=== PATIENT | female | born 1935 | race Caucasian/White ===

== ENCOUNTER 2019-06-14 15:27 | Emergency (ER) | payer OTHER ==
[~2019-06-14] VITALS: Ht 165.1 cm; Wt 68.0 kg
[~2019-06-14 15:27] MED LIST: ASPI-858 PO; HYDR-3924 PO; PLE5 PO; PRO40 PO; SENN-153 PO; SIMV40TA2 PO
--- NOTE | 2019-06-14 15:30 | NUR ---
ABY Nguyen at bedside examining patient.
--- NOTE | 2019-06-14 15:38 | NUR ---
Patient to ER bed 6 to gown for evaluation. Side rails up. Report given to Brian ADDISON.
[2019-06-14 15:39] VITALS: BP_SYST 139
[2019-06-14] MEDS ORDERED: MORPHINE 4 MG/ML INJ. SYRINGE IVP ONE ×2 (15:45→16:30)
--- NOTE | 2019-06-14 15:45 | NUR ---
Patient came in by BLS for hip pain. Patient states that she stubbed her right toe into a door and when she reacted she bent her leg up and felt a sudden pain in her right hip. 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 Patient says she has pain 09/08. Patient denies N/V/D. Patient denies SOB. Pt is A&Ox4. Will continue to monitor.
[2019-06-14 16:08] LABS: BASOPHILS % (AUTO) 0.7 % (0.0-2.0); EOSINOPHILS % (AUTO) 0.8 % (0.0-4.0); HEMATOCRIT 42.6 % (36-48); HEMOGLOBIN 13.9 g/dL (12.0-16.0); MEAN CORPUSCULAR HEMOGLOBIN 30 pg (27-31); MEAN CORPUSCULAR HGB CONC 33 % (32-36); MEAN CORPUSCULAR VOLUME 92 fL (79.0-98.0); MONOCYTES # (AUTO) 0.5 K/uL (0.0-1.0); MONOCYTES % (AUTO) 8.6 % (1.7-9.3); NEUTROPHILS % (AUTO) 71.9 % (40.0-70.0); PLATELET COUNT (AUTO) 106 K/uL (130-430); RED BLOOD CELL COUNT(AUTO) 4.63 MIL/uL (4.2-6.2); RED CELL DISTRIBUTION WIDTH 13.9 % (9.0-15.0); WHITE BLOOD COUNT (AUTO) 5.5 K/uL (4.8-10.8)
[2019-06-14 16:20] LABS: ANION GAP 8 (5-15); CALCIUM 9.2 mg/dL (8.4-11.0); CHLORIDE 106 mmol/L (98-107); CREATININE 0.77 mg/dL (0.55-1.30); GLUCOSE 118 mg/dL (70-99); POTASSIUM 3.5 mmol/L (3.5-5.1); SODIUM SERUM 140 mmol/L (136-145); UREA NITROGEN, BLOOD 10 mg/dL (8-21)
[2019-06-14 16:25] LABS: ALANINE AMINOTRANSFERASE 18 U/L (12-78); ALBUMIN 3.7 g/dL (3.4-4.8); ASPARTATE AMINOTRANSFERASE 20 U/L (10-37); TOTAL BILIRUBIN 0.7 mg/dL (0.0-1.0)
[2019-06-14] MEDS ORDERED: PROPOFOL 200MG/ 20ML VIAL (DIPRIVAN) IV ONE (16:45)
[2019-06-14] MEDS ORDERED: NACL 0.9% 1,000 ML IV ONE (16:45)
[2019-06-14] MEDS ORDERED: ONDANSETRON HCL 4 MG/2 ML VIAL IVP ONE (16:45)
--- NOTE | 2019-06-14 16:50 | NUR ---
Consent signed for conscious sedation.
[2019-06-14] MEDS ORDERED: fentaNYL CITRATE/PF 100 MCG/2 ML AMP IVP ONE (17:45)
--- NOTE | 2019-06-14 19:15 | NUR ---
ER Dr. Nguyen at bedside explaining results to patient/family.
--- NOTE | 2019-06-14 19:30 | NUR ---
Assisted patient for a road test with EMT. Pt was able to ambulate with minor assistance. Pt states "I feel better." Pt assisted back to bed. Dr. Nguyen notified of successful road test.
[2019-06-14 19:50] VITALS: BP_SYST 138
--- NOTE | 2019-06-14 19:50 | NUR ---
Patient given written and verbal discharge instructions and verbalizes understanding. ER MD discussed with patient the results and treatment provided. Patient in stable condition. ID arm band removed. IV catheter removed intact and dressing applied, no active bleeding. Rx of Tylenol with Codeine given. Patient educated on pain management and to follow up with PMD. Pain Scale 0. Opportunity for questions provided and answered. Medication side effect fact sheet provided.
== END 2019-06-14 19:50 | disposition home or self-care (01) ==
LOC: SED 15:27
DX: S73.004A Unspecified dislocation of right hip, initial encounter (principal); I10 Essential (primary) hypertension; Z86.79 Personal history of other diseases of the circulatory system; Z96.651 Presence of right artificial knee joint; Z96.641 Presence of right artificial hip joint; Z88.0 Allergy status to penicillin; Z88.1 Allergy status to other antibiotic agents; Z79.82 Long term (current) use of aspirin; Z79.899 Other long term (current) drug therapy; W18.39XA Other fall on same level, initial encounter; Y93.89 Activity, other specified; Y92.89 Other specified places as the place of occurrence of the external cause; Y99.8 Other external cause status
CPT/HCPCS: 27250; 36415; 72170; 73502; 80053; 82550; 85025; 96374; 96375; 99152; 99285; J2270; J2405; J2704; J3010; J7030

== ENCOUNTER 2022-06-16 16:30 | Emergency (ER) | payer OTHER, MEDICAID ==
[~2022-06-16] VITALS: Ht 165.1 cm; Wt 57.2 kg
[~2022-06-16 16:30] MED LIST changes: +CIPR500T5 PO; -HYDR-3924 PO; +HYDR-4497 PO; +METR500T PO
[2022-06-16 16:41] VITALS: BP_SYST 134
[2022-06-16] MEDS ORDERED: MORPHINE 4 MG INJ. 4 MG/ML VIAL IVP ONE ×2 (17:30→19:00)
--- NOTE | 2022-06-16 17:36 | NUR ---
PLACED IN BED 2 AT THIS TIME, ERMD AT BEDSIDE
[2022-06-16 18:13] LABS: BASOPHILS % (AUTO) 0.6 % (0.0-2.0); EOSINOPHILS # (AUTO) 0.1 K/uL (0.0-0.4); EOSINOPHILS % (AUTO) 1.3 % (0.0-4.0); HEMATOCRIT 39.8 % (36-48); HEMOGLOBIN 13.1 g/dL (12.0-16.0); LYMPHOCYTES # (AUTO) 1.3 K/uL (1.0-5.5); MEAN CORPUSCULAR HEMOGLOBIN 30 pg (27-31); MEAN CORPUSCULAR HGB CONC 33 % (32-36); MEAN CORPUSCULAR VOLUME 92 fL (79.0-98.0); MONOCYTES # (AUTO) 0.7 K/uL (0.0-1.0); NEUTROPHILS # (AUTO) 5.7 K/uL (1.8-7.7); NEUTROPHILS % (AUTO) 73.1 % (40.0-70.0); RED BLOOD CELL COUNT(AUTO) 4.32 MIL/uL (4.2-6.2); RED CELL DISTRIBUTION WIDTH 13.4 % (9.0-15.0); WHITE BLOOD COUNT (AUTO) 7.8 K/uL (4.8-10.8)
[2022-06-16 18:21] LABS: ANION GAP 6 (5-15); CALCIUM 9.4 mg/dL (8.4-11.0); CHLORIDE 103 mmol/L (98-107); CREATININE 0.83 mg/dL (0.55-1.30); GLUCOSE 127 mg/dL (70-99); INR 0.9 (0.8-1.2); PROTHROMBIN TIME 9.3 SECS (9.5-12.5); SODIUM SERUM 136 mmol/L (136-145); UREA NITROGEN, BLOOD 20 mg/dL (8-21)
[2022-06-16 18:27] LABS: ALANINE AMINOTRANSFERASE 11 U/L (12-78); ALBUMIN 3.9 g/dL (3.4-4.8); ASPARTATE AMINOTRANSFERASE 23 U/L (10-37); TOTAL BILIRUBIN 0.7 mg/dL (0.0-1.0)
[2022-06-16 18:31] LABS: PLATELET COUNT (AUTO) 120 K/uL (130-430)
[2022-06-16] MEDS ORDERED: ONDANSETRON HCL 4 MG/2 ML VIAL IVP ONE (19:00)
--- NOTE | 2022-06-16 19:21 | NUR ---
Report received from Camden Jalloh RN for continuation of care Pt awake a/o x4. daughter at bedside. c/o pain 09/08 to rle. denies n/v/d/fever. will continue to monitor.
--- NOTE | 2022-06-16 19:43 | NUR ---
Dr Hahn at bedside speaking with pt and pts family
[2022-06-16] MEDS ORDERED: fentaNYL CITRATE/PF 100 MCG/2 ML AMP IVP ONE (20:00)
--- NOTE | 2022-06-16 20:39 | NUR ---
Pt placed on bedpan, pt rima well
[2022-06-16] MEDS ORDERED: PROPOFOL DRIP 100 ML IV ONE (21:27)
--- NOTE | 2022-06-16 22:48 | NUR ---
Please see chart for moderate sedation procedure
[2022-06-16 23:05] VITALS: BP_SYST 117
--- NOTE | 2022-06-16 23:06 | NUR ---
Pt awake a/o x4. aci reviewed with pt and pts daughter, verbalized understanding. to follow up with pmd within the next 2-3 days or return to ed if condition worsens. vs stable. iv dc'd with no s/sx of complications noted. pt in nad. exit ed via wc accompanied by daughter.
== END 2022-06-16 23:05 | disposition home or self-care (01) ==
LOC: SED 16:30
DX: T84.020A Dislocation of internal right hip prosthesis, initial encounter (principal); I10 Essential (primary) hypertension; E11.9 Type 2 diabetes mellitus without complications; Z88.0 Allergy status to penicillin; Z88.1 Allergy status to other antibiotic agents; Z92.83 Personal history of failed moderate sedation; Z79.899 Other long term (current) drug therapy; X58.XXXA Exposure to other specified factors, initial encounter; Y93.89 Activity, other specified; Y92.89 Other specified places as the place of occurrence of the external cause; Y99.8 Other external cause status
CPT/HCPCS: 99291; 96374; 80053; 85025; 85610; 85730; 36415; 72170; 96376; 99152; J2704; J3010; J2270